=== PATIENT | female | born 1990 | race Two or more races ===

== ENCOUNTER → 2018-06-14 | Outpatient (CLI) | payer OTHER | END | disposition home or self-care (01) | LOC: MAMO-SONO 12:24 | DX: R30.0 Dysuria (principal); R10.2 Pelvic and perineal pain; N63.22 Unspecified lump in the left breast, upper inner quadrant; Z00.8 Encounter for other general examination; Z12.4 Encounter for screening for malignant neoplasm of cervix; Z12.31 Encounter for screening mammogram for malignant neoplasm of breast ==